=== PATIENT | female | born 1980 | race Asian ===

== ENCOUNTER 2021-12-13 13:49 | Outpatient (CLI) | payer OTHER | END 2021-12-13 14:05 | disposition home or self-care (01) | LOC: MAMO-SONO 13:49 → EDBD 13:49 → MAMO-SONO 14:05 | DX: N63.21 Unspecified lump in the left breast, upper outer quadrant (principal) ==

== ENCOUNTER 2024-06-01 07:46 | Outpatient (CLI) | payer OTHER | END 2024-06-01 07:47 | disposition home or self-care (01) | LOC: NUCLEAR 07:46 | PROVIDERS: ATTEND Internal Medicine Cardiovascular Disease | DX: R07.9 Chest pain, unspecified (principal) ==